=== PATIENT | male | born 2000 | race Caucasian/White ===

== ENCOUNTER 2024-04-10 01:36 | Emergency (ER) | payer MEDICAID, SELFPAY ==
[2024-04-10 01:37] VITALS: BP 123/81; PULSE 107; RESP 16; TEMP 36.7; O2SAT 96; BMI 33.9
--- NOTE | 2024-04-10 02:04 | EDS_ITS ---
HPI History of Present Illness Chief Complaint: Nausea/Vomiting Narrative Narrative: Patient is a 23-year-old male with no known significant past medical history who presents to the emergency department the chief complaint of nausea and vomiting. Patient states that around midnight he started having nausea and vomiting and states that he has unable to keep anything down therefore he came here for further evaluation management. Patient denies recent sick contacts. PFSH PFSH Medical History no medical history Home Medications ?Medication ?Instructions ?Recorded ?Last Taken ?Type dicyclomine 20 mg tablet 20 mg PO TID #20 tabs 04/10/24 Unknown Rx ondansetron 4 mg disintegrating 4 mg PO Q6H PRN nausea and 04/10/24 Unknown Rx tablet vomiting #20 tabs Allergy/AdvReac Type Severity Reaction Status Date / Time acetaminophen (From [facility] AdvReac Vomiting Verified 04/10/24 01:40 DayQuil) chlorpheniramine (From [facility] AdvReac Vomiting Verified 04/10/24 01:40 DayQuil) dextromethorphan (From [facility] AdvReac Vomiting Verified 04/10/24 01:40 DayQuil) guaifenesin (From [facility] AdvReac Vomiting Verified 04/10/24 01:40 DayQuil) phenylpropanolamine (From AdvRe[facility] Vomiting [facility]/10[facility]24 [facility] pseudoephedrine (From [facility] AdvReac Vomiting Verified 04/10/24 01:40 DayQuil) Social History Smoking Status: Never smoker ROS ROS ED ROS Narrative Constitutional: Denies any fevers, chills, headaches Abdomen: Complains of nausea vomiting as noted above denies any abdominal pain : Denies any urinary symptoms Neurological: Denies numbness, weakness, tingling Musculoskeletal: Denies back pain Skin: Denies rashes or lesions EXAM Physical Exam Narrative Exam Narrative: General: Patient lying in bed rest comfortably did not appear to be acute distress Head: Atraumatic, normocephalic Eyes: PERRL bilateral, EOMI bladder, no conjunctival injection noted Neck: Soft, supple, trach midline Cardiovascular: Regular rate and rhythm no murmurs gallops rubs noted Respiratory: Clear to auscultation bilaterally Abdomen: Soft, nondistended, no tenderness palpation Extremities: +5/5 strength noted in the bilateral upper and lower extremities Neurological: Patient following commands and that he was at [facility] years 2023 Skin: Warm, dry, intact Const Vital Signs: 04/10/24 01:37 Temperature 98.1 F Temperature Source Axillary Pulse Rate 107 H Respiratory Rate 16 Blood Pressure 123/81 H Blood Pressure Mean 95 Pulse Ox 96 Oxygen Delivery Method Room Air MDM MDM MDM Narrative Medical decision making narrative: Patient is a 23-year-old male who presented to the emergency department with a chief complaint of nausea vomiting. On the differential diagnose includes but limited to COVID, flu, RSV, viral gastroenteritis secondary to other viral illness. Once workup is obtained reviewed he will be reevaluated. Patient be given Bentyl and Zofran. Patient tested negative for COVID flu and RSV. Patient likely has a another form of viral gastroenteritis. Reevaluation of the patient he is feeling better he would like to go home. Patient was given prescription for Zofran and Bentyl this will be sent to his pharmacy. He is encouraged return with worsening symptoms or concerns. He is advised to follow-up with her primary care physician for which she was referred to. All question concerns answered he is discharged home in stable condition. Discharge Plan Triage Chief Complaint: Nausea/Vomiting ED Provider: Philip Manrique Dx/Rx/DC Orders Clinical Impression: Viral gastroenteritis Prescriptions: New dicyclomine 20 mg tablet 20 mg PO TID Qty: 20 0RF ondansetron 4 mg tablet,disintegrating 4 mg PO Q6H PRN (Reason: nausea and vomiting) Qty: 20 0RF Primary Care Provider: AMILCAR EISENBERG Referrals: [facility] Doctor,Out of [Non-Staff] - Activity Restrictions/Additional Instructions: Follow-up with your doctor. Use prescriptions as prescribed. Eat a bland diet and advance as tolerated. Return with worsening symptoms or other concerns. Print Language: Brazilian Disposition Disposition: Home, Self Care
[2024-04-10] MEDS: Ondansetron ODT 4 MG Tablet PO (02:06)
[2024-04-10] MEDS: Dicyclomine 10 MG Capsule 20 MG PO (02:26)
== END 2024-04-10 03:27 | disposition home or self-care (01) ==
PROVIDERS: Emergency Provider Emergency Medicine; Visit Provider Emergency Medicine
DX: A08.4 Viral intestinal infection, unspecified (principal)
CPT/HCPCS: 87631; 99283

== ENCOUNTER 2025-02-03 20:27 | Emergency (ER) | payer MEDICAID, SELFPAY ==
[2025-02-03 20:28] VITALS: BP 158/88; PULSE 90; RESP 16; TEMP 36.8; O2SAT 100; BMI 34.4
[2025-02-03 22:36] VITALS: BP 142/92; BP 152/76; BP 159/92; PULSE 78; PULSE 84; PULSE 88
[2025-02-03] MEDS: 0.9% Normal Saline (1000mL) 1,000 ML 1000 ML IV (22:45)
[2025-02-03 22:51] LABS: Mucous, Urine 0 SEEN /hpf (<or=2+); Red Blood Cells-Urine 0 SEEN /hpf (0-5)
[2025-02-03 22:58] LABS: Color, Urine Yellow (Yellow); Glucose, Dipstick Normal (Normal); Ketone-Dipstick Negative (Negative); Leukocyte Esterase-Dipstick Negative /ul (Negative); Nitrite-Dipstick Negative (Negative); Occult Blood-Urine Negative /ul (Negative); Protein-Dipstick 15 mg/dl (Negative); Specific Gravity, Urine 1.020 (1.002-1.030); Urine Bilirubin Dipstick Negative (Negative)
--- NOTE | 2025-02-03 22:58 | EX.ED.DYSGE1 ---
HPI History of Present Illness Chief Complaint: General Illness Informant: patient Onset/Context/Timing Onset: Today Context: Sudden Onset Timing: Continuous Quality: Lightheaded Location: Generalized Worsened by: Nothing Relieved by: Nothing Narrative Narrative: Patient presents with lightheadedness that began today. Patient states he took an znud-lae-zicposq weight loss medication at approximately 7:30 PM tonight. Patient states that approximately 1 hour later he started feeling dizzy and lightheaded. Patient states nothing makes it worse and nothing makes it better. Patient admits to some mild shortness of breath. Patient admits to some abdominal pain. Patient denies any nausea or vomiting. Patient denies any chest pain. Patient denies any headaches. PFSH [facility] Medical History (Updated 02/03/25 @ 23:[address] Ozzie Ansari DO) WPW (Szpcx-Vjtvybcxb-Xrohz syndrome) Home Medications ?Medication ?Instructions ?Recorded ?Last Taken ?Type dicyclomine 20 mg tablet 20 mg PO TID #20 tabs 04/10/24 Unknown Rx ondansetron 4 mg disintegrating 4 mg PO Q6H PRN nausea and 04/10/24 Unknown Rx tablet vomiting #20 tabs Allergy/AdvReac Type Severity Reaction Status Date / Time acetaminophen (From [facility] AdvReac Vomiting Verified 02/03/25 20:28 DayQuil) chlorpheniramine (From [facility] AdvReac Vomiting Verified 02/03/25 20:28 DayQuil) dextromethorphan (From [facility] AdvReac Vomiting Verified 02/03/25 20:28 DayQuil) guaifenesin (From [facility] AdvReac Vomiting Verified 02/03/25 20:28 DayQuil) phenylpropanolamine (From AdvReac Vomiting Verified 02/03/25 20:28 [facility] DayQuil) pseudoephedrine (From [facility] AdvReac Vomiting Verified 02/03/25 20:28 DayQuil) Surgical History (Updated 02/03/25 @ 23:[address] Ozzie Ansari DO) H/O cardiac ablation Social History Smoking Status: Never smoker ROS ROS ED Constitutional Constitutional ED: Denies chills or fever(s) Eyes Eyes: Denies blurry vision or change in vision ENT ENT ED: Denies rhinorrhea or sore throat Cardiovascular Cardiovascular: Denies chest pain or palpitations Respiratory/Chest Respiratory/Chest: Reports dyspnea; Denies cough Gastrointestinal Gastrointestinal: Reports abdominal pain; Denies nausea or vomiting Genitourinary Genitourinary ED: Denies dysuria or hematuria Musculoskeletal Musculoskeletal: Denies back pain or neck pain Integumentary Denies abscess or rash Neurologic Neurologic: Denies headache(s) or weakness Allergic/Immunologic Allergic/Immunologic ED: Denies mouth swelling or urticaria EXAM Physical Exam Const Vital Signs: 02/03/25 20:28 02/03/25 22:36 Temperature 98.2 F Temperature Source Oral Pulse Rate 90 Pulse Rate [Lying] 84 Pulse Rate [Sitting (for 1 minute prior to obtaining)] 88 Pulse Rate [Standing (for 1 minute prior to obtaining)] 78 Respiratory Rate 16 Blood Pressure 158/88 H Blood Pressure [Lying] 152/76 H Blood Pressure [Sitting (for 1 minute prior to obtaining)] 142/92 H Blood Pressure [Standing (for 1 minute prior to obtaining)] 159/92 H Blood Pressure Mean 111 Blood Pressure Mean [Lying] 101 Blood Pressure Mean [Sitting (for 1 minute prior to obtaining)] 108 Blood Pressure Mean [Standing (for 1 minute prior to obtaining)] 114 Pulse Ox 100 Oxygen Delivery Method Room Air Positive well nourished and well developed General Appearance ED: well developed and NAD HEENT Reports moist mucous membranes Neck supple and no JVD Resp normal respiratory effort and clear to auscultation bilaterally Cardio regular rate and regular rhythm GI non-distended Palpation: soft and tender epigastric, LUQ and RUQ; Negative for guarding or rebound tenderness present Neuro oriented x3, CN's II-XII intact bilaterally and no sensory deficits noted Sensorium / Orientation: alert Motor Exam: strength 5/5 throughout Psych mental status grossly normal MDM MDM MDM Narrative Medical decision making narrative: Differential diagnosis includes medication side effect, electrolyte abnormality, dehydration, gastritis, pancreatitis, and anxiety. CBC will be obtained to assess for leukocytosis and anemia. Comprehensive metabolic profile will be obtained to assess for hepatic function, renal function, and electrolyte abnormality. Lipase will be obtained to assess for pancreatitis. Urinalysis will be obtained to assess for urinary tract infection and hematuria. Orthostatic vital signs will be obtained to assess for hypovolemia and dehydration. Lab Data Attestation: I reviewed the patient's lab results. Lab results narrative: CBC was reviewed and was within normal limits. Comprehensive metabolic profile was reviewed and was within normal limits. Lipase was reviewed and was normal. Urinalysis was reviewed. There is no evidence of urinary tract infection or hematuria. Labs: Laboratory Results - last 24 hr 02/03/25 02/03/25 22:35 22:44 WBC 8.3 RBC 5.10 Hgb 14.8 Hct 43.0 MCV 84.3 MCH 29.0 MCHC 34.4 RDW Std Deviation 36.5 RDW Coeff of Andres 12.1 Plt Count 300 MPV 9.1 Immature Gran % (Auto) 0.400 Neut % (Auto) 51.1 Lymph % (Auto) 36.1 [place] % (Auto) 9.5 Eos % (Auto) 2.1 Baso % (Auto) 0.8 Absolute Neuts (auto) 4.2 Absolute Lymphs (auto) 2.98 Nucleated RBC % 0 Sodium 141 Potassium 3.8 Chloride 103 Carbon Dioxide 28.1 Anion Gap 10 BUN 9 Creatinine 0.78 Estim Creat Clear Calc 182.16 Est GFR (MDRD) Non-Af 129 BUN/Creatinine Ratio 11.1 Glucose 100 H Calcium 9.8 Total Bilirubin 0.34 AST 25 ALT 37 Alkaline Phosphatase 79 Total Protein 7.4 Albumin 4.8 Globulin 2.6 Albumin/Globulin Ratio 1.8 Lipase 25 Urine Color Yellow Urine Clarity Clear Urine pH 6.0 Ur Specific [place] 1.020 Urine Protein 15 H Urine Glucose (UA) Normal Urine Ketones Negative Urine Occult Blood Negative Urine Nitrite Negative Urine Bilirubin Negative Urine Urobilinogen Normal Ur Leukocyte Esterase Negative Urine RBC 0 SEEN Urine WBC 0 SEEN Ur Squamous Epith Cells 0-5 SEEN Calcium Oxalate Crystal 1+ Amorphous Sediment 1+ Urine Bacteria 1+ Urine Mucus 0 SEEN Treatment and Re-Evaluation :: Patient was given IV fluids. Orthostatic vital signs were obtained and were within normal limits. Patient was advised of his findings. Patient was advised that this could be a side effect from the eomj-hlh-clqgeop medication. Patient was instructed to avoid taking that medication in the future. Patient was advised that the best method for weight loss is diet and exercise. Patient was instructed to follow-up with his primary care physician in 5 to 7 days. Patient was instructed to return if worse in any way. Patient understood and was agreeable with the plan. All questions were answered. Discharge Plan Triage Chief Complaint: General Illness ED Provider: Ozzie Ansari Dx/Rx/DC Orders Clinical Impression: Medication side effect, Lightheadedness Instructions: ED Dizziness, Uncertain Cause Prescriptions: No Action dicyclomine 20 mg tablet 20 mg PO TID Qty: 20 0RF ondansetron 4 mg tablet,disintegrating 4 mg PO Q6H PRN (Reason: nausea and vomiting) Qty: 20 0RF Primary Care Provider: Care Physician,No Primary Referrals: Care Physician,No Primary [Primary Care Provider, Medical] Adri Chappell NP-C [Non-Staff, Family Practice] - 5-7 Days Print Language: Mohawk Disposition Disposition: Home, Self Care
[2025-02-03 23:07] LABS: Hematocrit 43.0 % (40-54); Hemoglobin 14.8 g/dL (13.0-16.5); Immature Granulocytes Count 0.030 X10^3/uL (0.0-0.0); Mean Corp Hgb Conc 34.4 g/dL (32-36); Mean Corpuscular Volume 84.3 fL (80-94); Mean Platelet Vol. 9.1 fl (6.2-12.0); NRBC Flagged by Analyzer 0 % (0-5); Platelet Count 300 K/mm3 (150-450); RBC Distribution Width CV 12.1 % (11.6-14.6); RBC Distribution Width SD 36.5 fl (35.1-43.9); Red Blood Count 5.10 M/mm3 (4.6-6.2); White Blood Count 8.3 K/mm3 (4.4-11.0)
[2025-02-03 23:13] LABS: AST(SGOT) 25 U/L (<=37); Alanine Aminotransfer ALT/SGPT 37 U/L (<=46); Albumin, Serum 4.8 g/dL (3.5-5.0); Alkaline Phosphatase 79 U/L (40-129); Anion Gap 10 (5-15); BUN 9 mg/dL (4-19); BUN/Creat Ratio 11.1 RATIO (10-20); Calcium,Total 9.8 mg/dL (7.6-11.0); Carbon Dioxide 28.1 mmol/L (21.0-32.0); Chloride 103 mmol/L (98-108); Estimated Creatinine Clearance 182.16 ml/min (50-250); Globulin 2.6 g/dL (2.2-4.2); Glucose 100 mg/dL (70-99); Lipase 25 U/L (13-75); Potassium 3.8 mmol/L (3.3-5.1)
[2025-02-03 23:38] LABS: Calcium Oxalate Crystals Ur 1+ /hpf (<or=2+); Squamous Epithelial Cells - UA 0-5 SEEN /hpf (0-5)
[2025-02-04 00:04] VITALS: BP 123/89; PULSE 84; RESP 14; TEMP 36.6; O2SAT 100
== END 2025-02-04 00:05 | disposition home or self-care (01) ==
PROVIDERS: Emergency Provider Emergency Medicine; Visit Provider Emergency Medicine
DX: R42 Dizziness and giddiness (principal); T50.995A Adverse effect of other drugs, medicaments and biological substances, initial encounter
CPT/HCPCS: 80053; 81001; 83690; 85025; 96360; 99282